=== PATIENT | male | born 1955 | race Caucasian/White ===

== ENCOUNTER → 2021-02-14 | Outpatient (CLI) | payer MEDICARE, MEDICAID ==
[~2021-02-14] MED LIST: ALPR1TAB2 PO; DOCU-109 PO; FENT1PAT13 TD; METH-562 PO; OXYC1TAB15 PO; OXYC1TAB22 PO
[2021-02-14 16:11] LABS: BASO # 0.2 x10^3/uL (0.0-0.2); BASO % 2 % (0-3); EOS # 0.3 x10^3/uL (0.0-0.7); EOS % 3 % (0-3); HEMOGLOBIN 16.1 g/dL (13.0-17.5); LYMPH # 4.9 x10^3/uL (1.0-4.8); LYMPH % 45 % (24-48); MEAN CORPUSCULAR HEMOGLOBIN 34 pg (25-35); MEAN CORPUSCULAR HGB CONC 34 g/dL (31-37); MEAN CORPUSCULAR VOLUME 100 fL (79-100); MONO # 0.7 x10^3/uL (0.0-1.1); MONO % 6 % (0-9); NEUT # 4.9 x10^3/uL (1.8-7.7); NEUT % 45 % (31-73); PLATELET COUNT 303 x10^3/uL (140-400); RED BLOOD COUNT 4.79 x10^6/uL (4.30-5.70); RED CELL DISTRIBUTION WIDTH 13.5 % (11.5-14.5); WHITE BLOOD COUNT 10.9 x10^3/uL (4.0-11.0)
[2021-02-14 16:24] LABS: PROTHROMBIN TIME PATIENT 12.4 SEC (11.7-14.0)
[2021-02-14 17:48] LABS: ALBUMIN 3.6 g/dL (3.4-5.0); ALBUMIN/GLOBULIN RATIO 0.9 (1.0-1.7); CALCIUM 8.5 mg/dL (8.5-10.1); CREATININE 1.1 mg/dL (0.7-1.3); GFR 67.6; POTASSIUM 4.1 mmol/L (3.5-5.1); TOTAL BILIRUBIN 0.5 mg/dL (0.2-1.0); TOTAL PROTEIN 7.6 g/dL (6.4-8.2)
[2021-02-15 01:09] LABS: HEMOGLOBIN A1C 5.6 % (4.8-5.6)
== END ==
LOC: SURGPAT 13:54
PROVIDERS: ATTEND Neurological Surgery
DX: Z01.818 Encounter for other preprocedural examination (principal); M54.16 Radiculopathy, lumbar region; M48.061 Spinal stenosis, lumbar region without neurogenic claudication
CPT/HCPCS: 36415; 80053; 83036; 85025; 85610; 85730; 87641

== ENCOUNTER → 2021-02-21 | Outpatient (CLI) | payer MEDICARE, MEDICAID | LOC: LAB 10:01 | PROVIDERS: ATTEND Neurological Surgery | DX: Z01.812 Encounter for preprocedural laboratory examination (principal); Z20.822 Contact with and (suspected) exposure to COVID-19; M48.061 Spinal stenosis, lumbar region without neurogenic claudication; M54.16 Radiculopathy, lumbar region | CPT/HCPCS: U0003; U0005 ==

== ENCOUNTER 2021-02-22 07:00 | Observation (INO) | payer MEDICARE, MEDICAID ==
[2021-02-16 17:33] VITALS: BP 135/82
[2021-02-22] VITALS (10 sets, daily range): BP systolic 100–135; BP diastolic 48–82
[~2021-02-22] VITALS: Ht 175.3 cm; Wt 89.0 kg
[~2021-02-22 07:00] MED LIST changes: +CLINDAMYCIN 900MG PREMIX 50 ML IV PRN; -DOCU-109 PO; +HYDROmorphone 2 MG/ML VIAL IVP PRN; -METH-562 PO; -OXYC1TAB15 PO; +PROCHLORPERAZINE 10 MG/2 ML VIAL. IVP PRN; +fentaNYL PF VIAL 100 MCG/2 ML VIAL IVP PRN
[2021-02-22] MEDS ORDERED: LIDOCAINE 1%/EPI 1:100,000 20 ML VIAL. ONE (07:15)
[2021-02-22] MEDS ORDERED: THROMBIN TOPICAL 20,000 UNIT SPRAY.SYRN KIT TP ONE (07:15)
[2021-02-22] MEDS ORDERED: BUPIVACAINE MPF 0.5% 30 ML VIAL. ONE (07:15)
[2021-02-22] MEDS ORDERED: GELATIN SPONGE SIZE 100. ONE (07:15)
[2021-02-22] MEDS: IV RINGERS,LACTATED 1000ML 1,000 ML IV SCH ×2 (07:53→13:30)
[2021-02-22] MEDS ORDERED: PROPOFOL 10 MG/ML (20ML) VIAL. IV ONE (07:56)
[2021-02-22] MEDS ORDERED: LIDOCAINE 2% PF 5 ML VIAL. ONE (07:56)
[2021-02-22] MEDS ORDERED: ONDANSETRON PF 4 MG/2 ML VIAL. ONE (07:56)
[2021-02-22] MEDS ORDERED: DEXAMETHASONE SOD PHOS 4 MG/ML VIAL ONE (07:56)
[2021-02-22] MEDS ORDERED: ROCURONIUM 50 MG/5 ML VIAL. ONE (07:57)
[2021-02-22] MEDS ORDERED: REMIFENTANIL 2 MG VIAL. IV ONE (08:04)
[2021-02-22] MEDS ORDERED: PROPOFOL 50 ML IV ONE ×2 (08:04→11:09)
[2021-02-22] MEDS ORDERED: MIDAZOLAM HCL/PF 2 MG/2 ML VIAL. ONE (08:14)
[2021-02-22] MEDS ORDERED: fentaNYL PF VIAL 250 MCG/5 ML VIAL ONE (08:14)
[2021-02-22] MEDS ORDERED: PHENYLEPHRINE 10 MG/ML VIAL. ONE ×2 (09:13)
[2021-02-22] MEDS ORDERED: GLYCOPYRROLATE 1 MG/5 ML VIAL. ONE (10:00)
[2021-02-22] MEDS ORDERED: REMIFENTANIL 1 MG VIAL. IV ONE (11:38)
[2021-02-22] MEDS ORDERED: VANCOMYCIN 1 GM VIAL. ONE (12:17)
[2021-02-22] MEDS ORDERED: NEOSTIGMINE METHYLSULFATE 5 MG/5 ML SYRINGE. ONE (12:44)
[2021-02-22] MEDS ORDERED: SEVOFLURANE > 120 MINUTES. IH ONE (12:45)
--- NOTE | 2021-02-22 12:58 | PDOC ---
BRIEF OPERATIVE NOTE Date: Feb 22, 2021 Pre-Op Diagnosis lumbar stenosis, lumbar radiculopathy Post-Op Diagnosis same Procedure Performed L3-4 bilateral laminectomy, left L4-5 hemilaminotomy, left L5-S1 hemilaminotomy Surgeon Jessica Anesthesia Type: General Blood Loss 25mL Specimens Obtained decompression Findings lumbar stenosis, neuromonitoring improved compared to baseline upon completion of decompression Complications none apparent JOE JOSEPH MD Feb 22, 2021 12:58
[2021-02-22] MEDS ORDERED: 0.9 % SODIUM CHLORIDE 10 ML DISP.SYRIN. IV PRN (13:00)
[2021-02-22] MEDS ORDERED: diphenhydrAMINE 50 MG/ML VIAL IV PRN (13:00)
[2021-02-22] MEDS ORDERED: fentaNYL PF VIAL 100 MCG/2 ML VIAL IVP PRN (13:00)
[2021-02-22] MEDS ORDERED: MAGNESIUM HYDROXIDE 2,400 MG/30 ML ORAL.SUSP. PO PRN (13:00)
[2021-02-22] MEDS ORDERED: NALOXONE 0.4 MG/ML VIAL. IV PRN ×2 (13:00)
[2021-02-22] MEDS ORDERED: MAG HYDROX/ALUMINUM HYD/SIMETH 30 ML ORAL.SUSP PO PRN (13:00)
[2021-02-22] MEDS ORDERED: ZOLPIDEM 5 MG TABLET. PO PRN (13:00)
[2021-02-22] MEDS ORDERED: diphenhydrAMINE HCL 25 MG CAPSULE PO PRN (13:00)
[2021-02-22] MEDS ORDERED: ONDANSETRON PF 4 MG/2 ML VIAL. IVP PRN (13:00)
[2021-02-22] MEDS ORDERED: IV NORMAL SALINE 1000ML BAG 1,000 ML IV SCH (13:00)
[2021-02-22] MEDS ORDERED: ACETAMINOPHEN 325 MG TABLET. PO PRN (13:00)
[2021-02-22] MEDS ORDERED: oxyCODONE/APAP 5/325 1 TAB TABLET PO PRN (13:00)
[2021-02-22] MEDS ORDERED: CALCIUM CARBONATE 500 MG TAB.CHEW PO PRN (13:00)
[2021-02-22] MEDS ORDERED: MORPHINE SULFATE 2 MG/ML INJ. ONE ×2 (13:41→14:25)
[2021-02-22] MEDS ORDERED: PROCHLORPERAZINE 10 MG/2 ML VIAL. ONE (13:42)
[2021-02-22] MEDS: MORPHINE SULFATE 2 MG/ML INJ. IVP PRN ×4 (13:47→14:25)
[2021-02-22] MEDS: CALCIUM CARB/VIT D3 500/200 TABLET. PO SCH (15:05)
[2021-02-22] MEDS: NICOTINE 21MG PATCH. TD SCH (15:05)
[2021-02-22] MEDS: fentaNYL PF VIAL 100 MCG/2 ML VIAL IVP PRN ×2 (15:05→18:07)
[2021-02-22] MEDS: METHOCARBAMOL 750 MG TABLET PO SCH ×2 (15:05→21:07)
--- NOTE | 2021-02-22 15:20 | NUR ---
received from recovery. lying on his right side. ice to back surgical dressing saturated mid dressing. states his pain is a "9". medicated with fentanyl and muscle relaxant. sign other is at bedside. denies numbness in hands or feet. pain is in the middle of incision no radiating down the legs. denies nausea at this time. states he quit smoking this am at 7am. nicotine patch ordered and placed.
[2021-02-22] MEDS: oxyCODONE/APAP 5/325 1 TAB TABLET PO PRN ×2 (15:58→21:08)
[2021-02-22] MEDS: FERROUS SULFATE 325 MG TABLET. PO SCH (15:59)
[2021-02-22] MEDS ORDERED: ALPRAZolam 1 MG TABLET PO SCH (21:00)
[2021-02-22] MEDS: SENNOSIDES/DOCUSATE 8.6/50MG TABLET. PO SCH (21:07)
[2021-02-22] MEDS: DOCUSATE SODIUM 100 MG CAPSULE. PO SCH (21:07)
[2021-02-23 03:30] VITALS: BP 91/53
[2021-02-23] MEDS: oxyCODONE/APAP 5/325 1 TAB TABLET PO PRN ×2 (05:54→09:25)
[2021-02-23 06:03] VITALS: BP 96/42
--- NOTE | 2021-02-23 08:30 | NUR ---
resting in recliner. lower back dressing is shadowed. rating his pain 6-7 with Percocet 10. denies numbness/tingling mod/large amount of serosanguineous drainage; cleansed with chlor prep 4x4's then large [facility]
[2021-02-23] MEDS ORDERED: MULTIVITAMIN with MINERAL TABLET. PO SCH (09:00)
[2021-02-23] MEDS: CALCIUM CARB/VIT D3 500/200 TABLET. PO SCH (09:25)
[2021-02-23] MEDS: SENNOSIDES/DOCUSATE 8.6/50MG TABLET. PO SCH (09:25)
[2021-02-23] MEDS: METHOCARBAMOL 750 MG TABLET PO SCH (09:25)
[2021-02-23] MEDS: FERROUS SULFATE 325 MG TABLET. PO SCH (09:25)
[2021-02-23] MEDS: DOCUSATE SODIUM 100 MG CAPSULE. PO SCH (09:25)
[2021-02-23] MEDS: NICOTINE 21MG PATCH. TD SCH (09:26)
--- NOTE | 2021-02-23 10:02 | PDOC ---
Date of Service: DATE: 02/23/21 TIME: 09:58 Progress Note: S: Reports legs feel better. Reports adequate pain control with present po regimen. Denies acute complaints otherwise this AM. O: AF/VSS, AAOx4, NAD, GILL 5/5, sensation intact LT, dressing had been changed due to sang drainage, current dressing c/d/i A: POD 1 multilevel lumbar decompression P: Pt to work with PT this AM, d/c home today with standard post-op restrictions Justifications for Admission Other Justification JOE JOSEPH MD Feb 23, 2021 10:02
[2021-02-23] MEDS ORDERED: DOCU-109 PO (10:11)
[2021-02-23] MEDS ORDERED: METH-562 PO (10:11)
[2021-02-23] MEDS ORDERED: OXYC1TAB15 PO (10:11)
[2021-02-23 11:15] VITALS: BP 135/70
--- NOTE | 2021-02-23 11:30 | NUR ---
resting in chair. rigoberto here. demonstrated dressing change. dressings given for 4 dressing changes. small/mod amount light pink drainage. verbalized understanding of dressing changes. reviewed medications, restrictions to activities of daily living such as bathing driving and lifting restrictions. dismissed to home with significant other.
--- NOTE | 2021-02-24 18:06 | PATHOLOGY ---
[facility] Accession Number: [id number] . 01 Material submitted: . vertebral column - DECOMPRESSION . 01 Clinical history: . LUMBAR STENOSIS BILATERAL LAMINECTOMY L3-4 L HEMILAMINECTOMY L4-5, K5-S1 . 02 Diagnosis: Segments of fibrocartilaginous tissue and bone, lumbar decompression: - Degenerative changes of fibrocartilaginous tissue. ([facility]; 02/24/2021) S 02/24/2021 1307 Local . 02 Comment: There is no evidence of an acute inflammatory process or malignancy. (JPM:[facility]; 02/24/2021) . 02 Electronically signed: . Wil Vasquez MD, Pathologist NPI- [id number] . 01 Gross description: . The specimen is received in formalin, labeled "Pealexi, Alan, decompression". Received are multiple segments of pale lowery to pink-lowery fibrous tissue admixed with fragments of gritty bone measuring 4.0 x 3.8 x 0.4 cm in aggregate dimensions. The specimen is submitted representatively in cassette A1, following light decalcification. ([facility]; 02/23/2021) [facility] 02/24/2021 1309 Local . 02 Pathologist provided ICD-10: M51.36 . 02 CPT . 602174, [id number] Specimen Comment: A courtesy copy of this report has been sent to [phone], [phone] Specimen Comment: [id number] Specimen Comment: Report sent to / DR MILLS Specimen Comment: A duplicate report has been generated due to demographic updates. Performed at: 01 [facility] [address], [place], [place] [id number] MD Pedro Monge MD Phone: [phone] Performed at: 02 [facility] [address], [place] [id number] MD Wil Vasquez MD Phone: [phone]
--- NOTE | 2021-02-28 17:44 | OP ---
DATE OF SURGERY: 02/22/2021 SURGEON: Odilon Lopez MD ELECTRONIC VIDEO GAMES SERVICER: None. PROCEDURE: Bilateral L3-L4 laminectomy, left L4-L5 hemilaminotomy, left L5-S1 hemilaminotomy. Use of microscope. Intraoperative neuromonitoring. PREOPERATIVE DIAGNOSIS: Lumbar stenosis L3-L4, left L4-L5 and left L5-S1 with lumbar radiculopathy. POSTOPERATIVE DIAGNOSIS: Lumbar stenosis L3-L4, left L4-L5 and left L5-S1 with lumbar radiculopathy. TYPE OF ANESTHESIA: General. COMPLICATIONS: None. INDICATIONS FOR THE PROCEDURE: The patient is a 65-year-old gentleman who presents with lower extremity pain localized to stenosis at L3-L4 level bilaterally as well as left L4-L5, left L5-S1. It has been refractory to the conservative measures. Please refer to the patient's chart for additional detail. DESCRIPTION OF PROCEDURE: After informed consent was obtained, the patient was brought into the operating room. He was placed under general anesthesia. He was placed in the prone position on the Cristobal frame. All pressure points were checked and padded appropriately. Lumbar incision was planned with fluoroscopy and the region was then prepped and draped in the usual sterile fashion. Clindamycin was instituted as a prophylactic antibiotic. A vertical incision centered over the region of lumbar L3-L4, L4-L5 and L5-S1 was made with a 10 blade scalpel. The initial part of the procedure involved the right L3-L4 lamina. Dissection was carried out rightward across the L3-L4 exposing the lamina at this location. Similar technique was utilized to expose the left-sided L3-L4 lamina as well as the left L4-L5 lamina and left L5-S1 lamina. For the remainder of the procedure, the microscope was utilized. Neuromonitoring potentials were obtained prior to the initiation of the procedure. Initially, a right L3-L4 laminectomy was performed with a pneumatic drill as well as Kerrison rongeurs. The underlying ligament was identified and gently freed from the neural elements with a nerve hook and removed with the Kerrison rongeur. Upon completion of the hemilaminotomy and removal of the ligament (which was noted to be significantly hypertrophied), the neural elements were noted to be very well decompressed, verified with direct visualization as well as gentle palpation with a blunt nerve hook and a Ron. Attention was then turned to the left-sided lamina at L3-L4, a left sided laminectomy was performed at this location with a pneumatic drill as well as Kerrison rongeur. The underlying ligaments were dissected free and removed with Kerrison rongeur. The neural elements were noted to be very well decompressed upon completion of this laminectomy verified with direct visualization as well as gentle palpation with a Bent. Next, a left L4-L5 hemilaminotomy was performed with a pneumatic drill as well as Kerrison rongeur. The underlying neural elements were gently dissected free and removed with Kerrison rongeurs without difficulty. Upon completion of the hemilaminotomy and dissection and removal of the hypertrophied ligament, the neural elements were noted to be very well decompressed, verified with direct visualization as well as gentle palpation with a Bent. Attention was then turned to the left lamina at L5-S1, hemilaminotomy was performed with a pneumatic drill as well as Kerrison rongeur. The underlying ligament was removed with a Kerrison rongeur after being dissected away from the thecal sac. Upon completion of the decompression, all elements were noted to be very well decompressed. Pristine hemostasis was achieved at all locations with generous irrigation, FloSeal, cottonoids and some use of bipolar electrocautery. The wound was then generously irrigated with antibiotic irrigation prior to final closure. Vancomycin powder was instituted as a prophylactic antibiotic prior to the final closure. Neuromonitoring potentials were noted to be improved compared to baseline upon completion of the procedure. The muscles and fascia were then reapproximated with 0 Vicryl in simple interrupted fashion. Subcutaneous tissues were reapproximated with 2-0 Vicryl in an interrupted inverted fashion. Skin was reapproximated with 4-0 Vicryl in a running subcuticular fashion. Mastisol and Steri-Strips were applied. Wound was dressed with Telfa and Tegaderm. At the end of the procedure, all needle and sponge counts were correct x 2. The patient was extubated in the operating room and taken to recovery in stable condition. There were no intraprocedural complications apparent. CARROLL MACEDO: Araseli TID: [id number] [facility]ITAL[facility]
--- NOTE | 2021-03-04 03:04 | HP ---
DATE OF SERVICE: 03/03/2021 ADMIT DATE: 02/22/2021 CHIEF COMPLAINT: Back pain and bilateral leg pain. HISTORY OF PRESENT ILLNESS: The patient is a 65-year-old male who presents with low back pain that radiates into the bilateral buttock region. Pain is worse on the left compared to the right for the last few years. He denies a clear inciting event or injury. 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 He denies focal weakness or bowel or bladder changes. He has had multiple pain management treatments and injections with only very short-lived benefit. He presents with a lumbar MRI. PHYSICAL EXAMINATION: VITAL SIGNS: Height is 70 inches. He weighs 195 pounds. His BMI is 27.98. His pain, he rates it 9/10. GENERAL: He is awake, alert and oriented x 4. He is in no acute distress. He is cooperative with the exam. HEENT: Normocephalic, atraumatic. NECK: Supple and nontender. LUNGS: Respirations are even and unlabored. SKIN: Turgor is normal. EXTREMITIES: He moves all extremities with good range of motion. Pulse is regular. Pulses are equal. No cyanosis, clubbing or edema in the extremities. NEUROLOGIC: Mentation and speech are normal. He comprehends and follows commands without difficulty. Cranial nerves 2-12 are intact bilaterally. Strength is 5/5 throughout all major muscle groups in the bilateral upper and bilateral lower extremities. Deep tendon reflexes are symmetric. Sensation is intact to light touch. Cerebellar function is normal in the upper and lower extremities bilaterally. Ambulation is with a normal stance and stride. IMAGING: There is a lumbar MRI on CD from 09/16/2020. Diffuse degenerative changes are noted. There is prominent focal stenosis noted at L3-4. There is left greater than right foraminal stenosis at L4-5 and L5-S1. The changes are due to facet arthropathy and ligamentous hypertrophy. PAST MEDICAL HISTORY: Denies. ALLERGIES: He has no known drug allergies. FAMILY HISTORY: Positive for cardiovascular disease and diabetes. SOCIAL HISTORY: Denies use of tobacco, alcohol or illicit drugs. REVIEW OF SYSTEMS: He has no weight changes. Generally healthy. No change in strength or exercise tolerance. He denies headache, vertigo or injury to the head. He has normal vision, no diplopia, no tearing, no scotomata, no pain in the eyes. He has no change in hearing, no tinnitus, no bleeding, no vertigo. He has no epistaxis, coryza, obstruction or discharge. He has no stiffness in the neck or pain or tenderness in the neck. There are no neck masses noted. He denies any dyspnea, wheezing, hemoptysis or cough. He denies any chest pain, palpitations, syncope or orthopnea. There is no change in appetite. No dysphagia, no abdominal pain. No bowel habit changes. No emesis. No melena. He has no urinary urgency, dysuria or change in the nature of urine. He denies weakness, tremor or seizures. There are no changes in mentation, no ataxia. ASSESSMENT: This is a 65-year-old male with lumbar spondylosis and lumbar stenosis as described in the radiology review. He has back pain with lumbar radiculopathy. PLAN: Imaging findings and therapeutic options were discussed. It was felt that he may benefit from surgical decompression. A bilateral laminectomy of L3-4 with left hemilaminotomies of L4-5 and L5-S1 were discussed with explanation of potential risks, benefits and expectations. After careful consideration of these things, he elected to proceed. All questions answered, all in agreement. CARROLL/LUDY/ALEXSANDER DR: CARROLL/karly TID: [id number]
== END 2021-02-23 12:05 | disposition home or self-care (01) ==
LOC: SURG 07:00 → EDUNIT# 09:00 → 4 SOUTHEST 13:30
PROVIDERS: ADMIT Neurological Surgery; ATTEND Neurological Surgery
DX: M48.061 Spinal stenosis, lumbar region without neurogenic claudication (principal); M54.16 Radiculopathy, lumbar region; Z98.890 Other specified postprocedural states
CPT/HCPCS: 36415; 63030; 63035; 63047; 86850; 86900; 86901; 88304; 88311; 96374; 96376; 97116; 97162; 97530; A4209; A4213; A4364; A4556; A4930; A6254; A6258; A6402; C9757; G0378; G0379; J0780; J1100; J2250; J2270; J2370; J2405; J2704; J2710; J3010; J3370; J3490; 76000; A4222; A4223; A4452